=== PATIENT | female | born 1970 | race Caucasian/White ===

== ENCOUNTER → 2024-03-18 12:20 | Outpatient (REF) | payer BC, SELFPAY | LOC: WDC 12:20 | PROVIDERS: ATTENDING PHYSICIAN Nurse Practitioner Adult Health | DX: Z12.31 Encounter for screening mammogram for malignant neoplasm of breast (principal) | CPT/HCPCS: 77063; 77067 ==

== ENCOUNTER → 2024-06-03 06:24 | Day surgery (SDC) | payer BC, SELFPAY | LOC: GI 06:24 | PROVIDERS: ATTENDING PHYSICIAN Surgery | DX: Z12.11 Encounter for screening for malignant neoplasm of colon (principal); Z86.010 Personal history of colon polyps | CPT/HCPCS: G0105 ==

== ENCOUNTER → 2025-08-17 08:06 | Outpatient (REF) | payer BC, SELFPAY | LOC: WDC 08:06 | PROVIDERS: ATTENDING PHYSICIAN Advanced Practice Midwife; FAMILY PHYSICIAN Nurse Practitioner Adult Health | DX: Z12.31 Encounter for screening mammogram for malignant neoplasm of breast (principal) | CPT/HCPCS: 77063; 77067 ==

== ENCOUNTER → 2025-09-07 13:09 | Outpatient (REF) | payer BC, SELFPAY | LOC: HWRAD 13:09 | PROVIDERS: ATTENDING PHYSICIAN Chiropractor; FAMILY PHYSICIAN Nurse Practitioner Adult Health | DX: M54.2 Cervicalgia (principal); G44.209 Tension-type headache, unspecified, not intractable; M62.830 Muscle spasm of back; M99.01 Segmental and somatic dysfunction of cervical region; M25.60 Stiffness of unspecified joint, not elsewhere classified | CPT/HCPCS: 72050 ==